=== PATIENT | male | born 1995 | race Caucasian/White ===

== ENCOUNTER 2022-08-25 23:53 | Emergency (ER) | payer OTHER ==
[~2022-08-25] VITALS: Ht 195.6 cm; Wt 145.2 kg
[2022-08-26] MEDS ORDERED: TOBRAMYCIN-DEXAM5 ML OPTH (00:02)
[2022-08-26] MEDS ORDERED: VALTREX500 MG (00:03)
[2022-08-26 00:36] VITALS: BP 161/91
== END 2022-08-26 00:37 | disposition home or self-care (01) ==
LOC: ED 23:53
DX: J20.9 Acute bronchitis, unspecified (principal); Z88.2 Allergy status to sulfonamides
CPT/HCPCS: 94640; 99284 25